=== PATIENT | male | born 1965 | race Caucasian/White ===

== ENCOUNTER 2020-02-02 16:22 | Observation (INO) | payer MEDICAID, SELFPAY ==
[~2020-02-02] VITALS: Ht 182.9 cm; Wt 87.5 kg
--- NOTE | 2020-02-02 16:22 | NUR ---
Patient BIBA CCT, transferred to bed 10. RT and RN are evaluating the patient at bedside.
--- NOTE | 2020-02-02 16:24 | NUR ---
Dr. Baker is evaluating the patient at bedside.
[2020-02-02 16:27] VITALS: BP 108/66
--- NOTE | 2020-02-02 16:45 | NUR ---
54[facility], FOR SAMANIEGO CATH INSERTION. SNF STAFF WAS UNABLE TO SUCCESSFULLY REPLACE SAMANIEGO AT FACILITY. PT VOIDED LARGE AMOUNT ON GURNEY, ABD SOFT/NT/ND. OSTOMY BAG ON LEFT LOWER ABD IN PLACE. G-TUBE IN PLACE, DRESSING C/D/I. DRAINAGE TUBE IN PLACE ON ABD CONNECTED TO A SAMANIEGO BAG. TRACH TO VENT AC: TV 500, RATE 12, FLOW 45, FIO2 28%, PEEP 5. FLACC 0. PT CONNECTED TO BEDSIDE MONITOR. AFEBRILE, VSS. HX TRACH TO VENT, SEIZURE, RESPIRATORY FAILURE, DM, HTN
--- NOTE | 2020-02-02 17:00 | NUR ---
16 Setswana simmons catheter placed at this time. Catheter placement confirmed by Dr Baker by bedside ultrasound.
--- NOTE | 2020-02-02 19:12 | NUR ---
Pt report given to ERIBERTO DAVIS. Transfer of care at this time.
--- NOTE | 2020-02-02 19:13 | NUR ---
REPORT RECIEVED FROM ERIBERTO CRAWFORD. TRANSFER OF CARE AT THIS TIME.
--- NOTE | 2020-02-02 19:20 | NUR ---
PT PLACED ON ICE CREAM MAKER/PULSE OX. VSS. SOCKS PLACED ON PT. BED LOCKED AND IN LOWEST POSITION. SIDE RAILS X2.
--- NOTE | 2020-02-02 19:30 | NUR ---
PER REPORT FROM ERIBERTO CRAWFORD- NO OUTPUT FROM SAMANIEGO CATHETER, PLACEMENT IN BLADDER CONFIRMED FROM PREVIOUS ULTRASOUND BY CRIS.
--- NOTE | 2020-02-02 21:30 | NUR ---
NO OUTPUT FROM BLADDER, SAMANIEGO EMPTY.
--- NOTE | 2020-02-02 21:30 | NUR ---
PT TRACH SUCTIONED DUE TO HIGH PEAK ALARM
[2020-02-02 21:50] VITALS: BP 128/88
--- NOTE | 2020-02-02 22:02 | NUR ---
PT TRACH SUCTIONED DUE TO HIGH PEAK ALARM
--- NOTE | 2020-02-02 22:13 | NUR ---
RT AT BEDSIDE
--- NOTE | 2020-02-02 23:30 | NUR ---
NO OUTPUT FROM BLADDER, SAMANIEGO EMPTY.
[2020-02-02 23:50] VITALS: BP 126/82
--- NOTE | 2020-02-03 | NUR ---
PT ASLEEP IN BED. VSS. BED LOCKED AND IN LOWEST POSITION. SIDE RAILS X2.
[2020-02-03] MEDS ORDERED: NACL 0.9% 1,000 ML IV ONE (00:55)
--- NOTE | 2020-02-03 01:10 | NUR ---
ATTEMPTED TO START IV. UNSUCCSSFUL. CHARGE NURSE MADE AWARE.
--- NOTE | 2020-02-03 01:20 | NUR ---
lab at bedside
[2020-02-03 01:35] LABS: BASOPHILS # (AUTO) 0.1 K/uL (0.00-0.22); BASOPHILS % (AUTO) 0.6 % (0.0-2.0); EOSINOPHILS # (AUTO) 0.5 K/uL (0-0.4); EOSINOPHILS % (AUTO) 4.5 % (0.0-4.0); HEMATOCRIT 34.8 % (36-52); HEMOGLOBIN 11.1 g/dL (12.0-18.0); LYMPHOCYTES # (AUTO) 1.7 K/uL (2.0-11.5); LYMPHOCYTES % (AUTO) 14.4 % (20.5-51.1); MEAN CORPUSCULAR HEMOGLOBIN 26 pg (27-31); MEAN CORPUSCULAR HGB CONC 32 g/dL (33-37); MEAN CORPUSCULAR VOLUME 80.4 fL (80-94); MONOCYTES # (AUTO) 0.9 K/uL (0.8-1.0); MONOCYTES % (AUTO) 7.9 % (1.7-9.3); NEUTROPHILS # (AUTO) 8.6 K/uL (1.8-7.7); PLATELET COUNT (AUTO) 251 K/uL (140-450); RED BLOOD CELL COUNT(AUTO) 4.33 MIL/uL (4.20-6.10); RED CELL DISTRIBUTION WIDTH 16.7 % (11.6-13.7); WHITE BLOOD COUNT (AUTO) 11.9 K/uL (4.8-10.8)
[2020-02-03 01:49] LABS: ALBUMIN 2.8 g/dL (3.4-5.0); ANION GAP 14.7 (8-16); CARBON DIOXIDE 26.3 mmol/L (21-32); CREATININE 0.8 mg/dL (0.6-1.3); TOTAL BILIRUBIN 0.3 mg/dL (0.0-1.0)
[2020-02-03 01:50] VITALS: BP 126/82
[2020-02-03 01:54] LABS: NEUTROPHILS % (AUTO) 72.6 % (42.2-75.2)
--- NOTE | 2020-02-03 02:06 | NUR ---
TANK SWAB COLLECTED AND SENT TO LAB
[2020-02-03] MEDS ORDERED: POTA10TE30 JT (02:16)
[2020-02-03] MEDS ORDERED: FAMO10TA93 JT (02:16)
[2020-02-03] MEDS ORDERED: [UNRECOGNIZED DRUG - CODE] GT (02:16)
[2020-02-03] MEDS ORDERED: LACT1CAP59 JT (02:16)
[2020-02-03] MEDS ORDERED: SENN8.6T37 JT (02:16)
[2020-02-03] MEDS ORDERED: LACT10SO4 JT (02:16)
[2020-02-03 03:00] VITALS: BP 126/82
--- NOTE | 2020-02-03 03:00 | NUR ---
200ML OUTPUT FROM SAMANIEGO
--- NOTE | 2020-02-03 03:15 | NUR ---
COLOSTOMY BAG CHANGED. DIAPER CHANGED. PT GIVEN BED BATH AND CHANGED INTO NEW GOWN.
--- NOTE | 2020-02-03 03:43 | NUR ---
Patient will be admitted to care of [facility]. Admited to [facility]. Will go to room 124B. Belongings list completed. Report to ERIBERTO ABDUL.
[2020-02-03 03:45] VITALS: BP 120/78
--- NOTE | 2020-02-03 03:45 | NUR ---
ADMITTED THE PT FROM ER VIA GURNEY. PT AWAKE, NON VERBAL, ON TRACH TO VENT SETTING ORDERED, SATING 97%. NO SIGN AND SYMPTOMS OF DISTRESS NOTED AT THIS TIME. VITAL SIGNS, STABLE, AFEBRILE. PATIENT HAS J TUBE DRAINING GREENISH FLUID. G TUBE IS CLAMPED, NO RESIDUAL NOTED.CLEANED THE J TUBE AND G TUBE SITE, NOTED REDNESS AND MINIMAL DRAINING.PLACED A NEW DRESSING. COLOSTOMY ALSO IN PLACED ON THE LLQ OF THE ABDOMEN. STOMA PINKISH IN COLOR AND NEW COLOSTOMY BAG WAS APPLIED IN ER. NO OUTPUT NOTED. SAMANIEGO CATHETER ALSO PLACE IN ER DRAINING DARK KYREE URINE. EVENING CARE PROVIDED. CHANGED THE PT GOWN AND POSITIONED FOR COMFORT. HOB ELEVATED. BED RAILS PADDED FOR SEIZURE PRECAUTION. NOTED PT HAS GENERALIZED SKIN DERMATITIS. Z GUARD APPLIED SIDE RAILS UP. BED IN LOW POSITION AND BED ALARM ON.CALL LIGHT WITHIN REACH.W ILL CONTINUE POC.
--- NOTE | 2020-02-03 06:27 | NUR ---
CHECKED PATIENT BLOOD SUGAR, 85. NO COVERAGE NEEDED AND GIVEN.
[2020-02-03] MEDS ORDERED: NACL 0.9% 1,000 ML IV SCH (06:35)
[2020-02-03] MEDS ORDERED: ONDANSETRON 4 MG/2 ML VIAL IVP PRN (06:35)
[2020-02-03] MEDS ORDERED: DOCUSATE SODIUM 100 MG GELCAP PO PRN (06:35)
[2020-02-03] MEDS ORDERED: ZOLPIDEM 5 MG TAB PO PRN (06:35)
[2020-02-03] MEDS ORDERED: ACETAMINOPHEN 325 MG TAB PO PRN (06:35)
[2020-02-03] MEDS ORDERED: HYDROcodone/APAP 5/325 MG 1 TAB TAB PO PRN (06:35)
[2020-02-03] MEDS ORDERED: MORPHINE SULFATE 2 MG/ML SYR IVP PRN (06:35)
[2020-02-03] MEDS ORDERED: LORazepam 2 MG/ML VIAL IM/IVP PRN (06:35)
[2020-02-03 06:39] LABS: BASOPHILS # (AUTO) 0.1 K/uL (0.00-0.22); BASOPHILS % (AUTO) 1.1 % (0.0-2.0); EOSINOPHILS # (AUTO) 0.8 K/uL (0-0.4); EOSINOPHILS % (AUTO) 6.4 % (0.0-4.0); HEMATOCRIT 34.1 % (36-52); HEMOGLOBIN 10.8 g/dL (12.0-18.0); LYMPHOCYTES % (AUTO) 17.2 % (20.5-51.1); MEAN CORPUSCULAR HEMOGLOBIN 25 pg (27-31); MEAN CORPUSCULAR HGB CONC 32 g/dL (33-37); MEAN CORPUSCULAR VOLUME 79.5 fL (80-94); MONOCYTES # (AUTO) 1.1 K/uL (0.8-1.0); MONOCYTES % (AUTO) 9.7 % (1.7-9.3); NEUTROPHILS # (AUTO) 7.7 K/uL (1.8-7.7); NEUTROPHILS % (AUTO) 65.6 % (42.2-75.2); PLATELET COUNT (AUTO) 275 K/uL (140-450); RED BLOOD CELL COUNT(AUTO) 4.29 MIL/uL (4.20-6.10); RED CELL DISTRIBUTION WIDTH 16.2 % (11.6-13.7); WHITE BLOOD COUNT (AUTO) 11.7 K/uL (4.8-10.8)
[2020-02-03 07:14] LABS: ALBUMIN 2.7 g/dL (3.4-5.0); ANION GAP 12.5 (8-16); CARBON DIOXIDE 29.4 mmol/L (21-32); CREATININE 0.8 mg/dL (0.6-1.3); MAGNESIUM 2.1 mg/dL (1.8-2.4); PHOSPHORUS 3.3 mg/dL (2.5-4.9); POTASSIUM 3.9 mmol/L (3.5-5.1); TOTAL BILIRUBIN 0.3 mg/dL (0.0-1.0)
--- NOTE | 2020-02-03 07:14 | NUR ---
RECEIVED REPORT FROM ACCOUNT MANAGER RELIEF. PT AWAKE, NO DISTRESS NOTED, RESPIRATIONS EVEN AND UNLABORED ON TRACH TO VENT FIO2 28% VT500 RR12 PEEP 5. DERMATITIS TO UNDERARMS AND GROIN PRESENT. BLANCHABLE REDNESS TO SACRAL AREA. GTUBE AND J TUBE IN PLACE, COLOSTOMY BAG IN PLACE. SAMANIEGO IN PLACE. IV SITE PATENT AND ASYMPTOMATIC INFUSING PER ORDER IN R AC 20G. SAFETY MEASURES IN PLACE, BED IN LOW POSITION, HOB 30 DEG, WILL CONTINUE TO MONITOR.
--- NOTE | 2020-02-03 07:14 | NUR ---
PATIENT STABLE. NO ACUTE EVENTS THROUGHOUT THE NIGHT. ENDORSED THE PT TO THE ONCOMING RN FOR CONTINUITY OF CARE. SIGNING OFF.
[2020-02-03 07:17] LABS: CHOL/HDL RATIO 5.4 (1-4.5)
[2020-02-03 07:40] LABS: FREE T4 (FREE THYROXINE) 1.08 ng/dL (0.76-1.46); THYROID STIMULATING HORMONE 0.68 uIU/mL (0.34-3.74)
--- NOTE | 2020-02-03 08:58 | NUR ---
DISCHARGE PLANNING: RECEIVED AN ORDER TO DC BACK TO [facility]. CONTACTED THE SAID FACILITY AT [phone] NO ANSWER. PLACED A CALL AGAIN, ABLE TO SPEAK TO . SHE STATED TO CALL VETO AT [phone]. CONTACTED THE PROVIDED NUMBER, NO ANSWER. LEFT MESSAGE. WILL FOLLOW UP. CONTACTED VETO OLIVER ARMATURE [facility] FOR [facility], [place] [place] AND [facility] AT [phone]. PER VETO, SHE WILL FIND OUT WHAT HAPPENED AND WILL CONTACT ME BACK. Addendum: 02/03/20 at 0909 by Libertad Willingham CM CLINICALS SENT TO [facility]. WILL FOLLOW UP Addendum: 02/03/20 at 1142 by Libertad Willingham CM LATE ENTRY: PER VETO SOMEBODY FROM [facility] WILL BE CONTACTING ME. RECEIVED A CALL FROM FAREED WEI, STATING THE [facility] IS HERE TO HEEL SPRAYER FIRST PATIENT. INFORMED HIM THAT I DO NOT HAVE THE ROOM NUMBER AND ACCEPTING DOC AT [facility]. VETO GIBBS MADE AWARE, SHE STATED SHE IS NOT SURE IF BERNIE IS THE ONE WHO SET UP TRANSPORT, HOWEVER SHE WILL CHECK AND WILL CALL ME BACK. SHE STATED JUAN ANTONIO WILL BE CALLING ME BACK. RECEIVED A CALL FROM ARMANI OF IVR, STATING THAT THEY ARE IN THE PROCESS OF ROOM CHANGES AND IF WE CAN WAIT. INFORMED HIM THAT AMBULANCE IS HERE AND THEY ARE NOT ABLE TO WAIT. I ALSO INFORMED HIM THAT THE PATIENT STAYED OVERNIGHT JUST BECAUSE WE COULD GET A TRANSPORT FOR HIM AND THE ONLY REASON THAT PATIENT WAS BROUGHT TO THE HOSPITAL IS FOR FC REPLACEMENT WHICH WAS DONE LAST NIGHT. HE STATED HE WILL CALL ME RIGHT BACK. PER MYA JC OF IV[facility] PATIENT CAN GO TO ROOM 120A UNDER DR. COLE ALVARADO. CHARGE NURSE AB MADE AWARE TO SEND THE PATIENT NOW.
--- NOTE | 2020-02-03 09:18 | NUR ---
PATIENT HAS BEEN SCREENED AND CATEGORIZED HIGH NUTRITION RISK. PATIENT WILL BE SEEN WITHIN 1-2 DAYS OF ADMISSION. 02/03/2020-02/04/[address]
--- NOTE | 2020-02-03 09:28 | NUR ---
ROCEPHIN ADMINISTERED PER ORDER. PT TOLERATED WELL, NO DISTRESS NOTED, FLACC 0. RESPIRATIONS EVEN AND UNLABORED. VAP ORAL CARE GIVEN. PT REPOSITIONED. WILL CONTINUE TO MONITOR.
[2020-02-03 10:11] VITALS: BP 119/76
--- NOTE | 2020-02-03 10:50 | NUR ---
PT DISCHARGED AT THIS TIME GOING BACK TO [facility]IA [facility]. PT IN STABLE CONDITION, NO DISTRESS NOTED, VITALS UPON DISCHARGE BP 119/76, P 98, RR 21, TEMP 97.8 AND O2 SAT 97%. IV SITE REMOVED WITH MIGUEL BLOOD LOSS AND LUMEN INTACT. SAMANIEGO LEFT IN PLACE. ID BANDS REMOVED. DISCHARGE TEACHING GIVEN, NO EVIDENCE OF LEARNING NOTICED. CALLED [facility] TIMES AT [phone] TO GIVE REPORT, NO RESPONSE. CALLED CONTACT ON FILE VETO OLIVER TWICE AT [phone], NO RESPONSE. PT ESCROTED OFF UNIT BY [facility] PERSONNEL IN [facility]. PT ADMITTED WITH NO BELONGINGS.
--- NOTE | 2020-02-03 11:32 | NUR ---
RECEIVED CALL FROM SB AT [facility] AND GAVE REPORT.
== END 2020-02-03 10:51 | disposition short-term general hospital (02) ==
LOC: MED 16:22 → MTU 02-03 01:59 → UNDOADMIN 02-03 01:59
PROVIDERS: ADMIT Family Medicine; ATTEND Family Medicine
DX: R62.50 Unspecified lack of expected normal physiological development in childhood (principal); Z20.828 Contact with and (suspected) exposure to other viral communicable diseases; G82.50 Quadriplegia, unspecified; N39.0 Urinary tract infection, site not specified; T83.091A Other mechanical complication of indwelling urethral catheter, initial encounter; G40.909 Epilepsy, unspecified, not intractable, without status epilepticus; I10 Essential (primary) hypertension; R13.10 Dysphagia, unspecified; E11.9 Type 2 diabetes mellitus without complications; D72.829 Elevated white blood cell count, unspecified; D53.9 Nutritional anemia, unspecified; E43 Unspecified severe protein-calorie malnutrition; J96.21 Acute and chronic respiratory failure with hypoxia; E78.1 Pure hyperglyceridemia; G93.1 Anoxic brain damage, not elsewhere classified; L89.90 Pressure ulcer of unspecified site, unspecified stage; Z99.11 Dependence on respirator [ventilator] status; Z93.3 Colostomy status; Z93.0 Tracheostomy status; Z93.1 Gastrostomy status; Z79.899 Other long term (current) drug therapy; Z88.1 Allergy status to other antibiotic agents; X58.XXXA Exposure to other specified factors, initial encounter; Y93.89 Activity, other specified; Y92.89 Other specified places as the place of occurrence of the external cause
CPT/HCPCS: 36415; 51702; 71045; 80053; 80061; 82150; 82948; 83036; 83690; 83735; 83880; 84100; 84439; 84443; 84484; 85025; 85610; 85730; 87081; 87426; 93005; 96361; 96365; 99284; G0378; J0696; J7030; J7060; Q0092; 94002; 94003

== ENCOUNTER 2020-02-29 14:34 | Emergency (ER) | payer MEDICAID, SELFPAY ==
[~2020-02-29] VITALS: Ht 177.8 cm; Wt 83.9 kg
[~2020-02-29 14:34] MED LIST: FAMO10TA93 JT; LACT10SO4 JT; LACT1CAP59 JT; METO-625 GT; POTA10TE30 JT; SENN8.6T37 JT
--- NOTE | 2020-02-29 14:34 | NUR ---
Patient TOMASA ALS from [facility], transferred to bed 10. RN and RT evaluating patient at bedside.
[2020-02-29 14:35] VITALS: BP 113/79
--- NOTE | 2020-02-29 14:37 | NUR ---
54 y/o male BIBA from [facility] for simmons catheter replacement. Per EMT F/C was dislodged today at facility. PMH: Respiratory failure, epilepsy, BPH, HF, DM, ESRD, anemia RX: Refer to patient's chart Allergies to zosyn
--- NOTE | 2020-02-29 14:44 | NUR ---
Dr. Scott is evaluating the patient at bedside.
[2020-02-29 14:50] VITALS: BP 120/78
--- NOTE | 2020-02-29 14:54 | NUR ---
Successful insertion of 16F simmons catheter. Pt tolerated procedure well.
[2020-02-29] MEDS ORDERED: METO25TA GT (14:58)
[2020-02-29] MEDS ORDERED: [UNRECOGNIZED DRUG - CODE] JT (14:58)
[2020-02-29] MEDS ORDERED: FAMO-90 JT (14:58)
[2020-02-29] MEDS ORDERED: HEPA500056 SQ (14:58)
[2020-02-29] MEDS ORDERED: DOCU-299 JT (14:58)
[2020-02-29] MEDS ORDERED: MAGN200T5 JT (14:58)
[2020-02-29] MEDS ORDERED: LACT1CAP59 JT (14:58)
[2020-02-29] MEDS ORDERED: LACT10SO1 JT (14:58)
[2020-02-29] MEDS ORDERED: NUTR887L JT (14:58)
[2020-02-29] MEDS ORDERED: MAGN400S60 JT (14:58)
--- NOTE | 2020-02-29 14:59 | NUR ---
Called to report to [facility] of transfer of patient care per [facility],
--- NOTE | 2020-02-29 15:00 | NUR ---
[facility] at bedside for return transport to SNF.
[2020-02-29 15:01] VITALS: BP 113/79
--- NOTE | 2020-02-29 15:02 | NUR ---
Patient discharged with v/s stable. Written and verbal after care instructions given and explained. Patient verbalized understanding. Ambulance Transport with to retirement. All questions addressed prior to discharge. Advised to follow up with PMD.
== END 2020-02-29 15:00 ==
LOC: MED 14:34
DX: T83.098A Other mechanical complication of other urinary catheter, initial encounter (principal); D64.9 Anemia, unspecified; E11.9 Type 2 diabetes mellitus without complications; I63.9 Cerebral infarction, unspecified; I10 Essential (primary) hypertension; Z88.0 Allergy status to penicillin; Z79.899 Other long term (current) drug therapy
CPT/HCPCS: 51702; 99284

== ENCOUNTER 2021-09-01 14:38 | Inpatient (IN) | payer MEDICAID ==
[~2021-09-01] VITALS: Ht 172.7 cm; Wt 76.2 kg
--- NOTE | 2021-09-01 00:15 | NUR ---
PATIENT IS ASLEEP. NO FACIAL GRIMACING. SAMANIEGO CATHETER IS PATENT WITH URINE IS DRAINING DOWN. NO HEMATURIA.
[~2021-09-01 14:38] MED LIST changes: +DOCU-299 JT; +FAMO-90 JT; -FAMO10TA93 JT; +HEPA500056 SQ; +LACT-103 JT; -LACT10SO4 JT; +MAGN200T5 JT; +MAGN400S60 JT; +METO25TA GT; +NUTR887L JT; -POTA10TE30 JT; -SENN8.6T37 JT; +[UNRECOGNIZED DRUG - CODE] JT
[2021-09-01 14:48] VITALS: BP 185/95
--- NOTE | 2021-09-01 14:58 | NUR ---
55 Y/O MALE BIBA FROM [facility] C/O GT MALFUNCTION, STATED THAT GT WAS CHANGED IN 08/25/2021,,EXCESSIVE LEAKING AND MASD PREVENT. 2ND GT ON 08/30/21 D/T LEAKING TO A BIGGER SIZE, NOW FR24. PER DR ALVARADO, SENT OUT FOR FURTHER EVAL. NOTED LEAKING GT, SAMANIEGO IN PLACE, TRACH TO VENT, IV 22G IN LEFT HAND. HR 105 PMH;EPILEPSY, BPH, TIA, RESPIRATORY FAILURE, TRACH, CHF, AFIB, HTN, ALLERGY: ZOSYN
[2021-09-01] MEDS ORDERED: NACL 0.9% 1,000 ML IV SCH (15:10)
[2021-09-01] MEDS ORDERED: levoFLOXacin 500 MG TAB PO ONE (15:10)
--- NOTE | 2021-09-01 15:11 | NUR ---
RAD AT BEDSIDE
[2021-09-01 15:23] LABS: BASOPHILS # (AUTO) 0.1 K/uL (0.00-0.22); BASOPHILS % (AUTO) 0.9 % (0.0-2.0); EOSINOPHILS # (AUTO) 0.5 K/uL (0-0.4); EOSINOPHILS % (AUTO) 3.6 % (0.0-4.0); HEMATOCRIT 39.6 % (36-52); HEMOGLOBIN 12.7 g/dL (12.0-18.0); LYMPHOCYTES # (AUTO) 2.4 K/uL (2.0-11.5); LYMPHOCYTES % (AUTO) 18.7 % (20.5-51.1); MEAN CORPUSCULAR HEMOGLOBIN 26 pg (27-31); MEAN CORPUSCULAR HGB CONC 32 g/dL (33-37); MEAN CORPUSCULAR VOLUME 81.3 fL (80-94); MONOCYTES # (AUTO) 0.8 K/uL (0.8-1.0); MONOCYTES % (AUTO) 6.3 % (1.7-9.3); NEUTROPHILS # (AUTO) 9.1 K/uL (1.8-7.7); NEUTROPHILS % (AUTO) 70.5 % (42.2-75.2); PLATELET COUNT (AUTO) 246 K/uL (140-450); RED BLOOD CELL COUNT(AUTO) 4.87 MIL/uL (4.20-6.10); RED CELL DISTRIBUTION WIDTH 17.8 % (11.6-13.7); WHITE BLOOD COUNT (AUTO) 12.9 K/uL (4.8-10.8)
[2021-09-01 15:34] LABS: ALBUMIN 2.8 g/dL (3.4-5.0); ANION GAP 10.3 (8-16); CARBON DIOXIDE 30.1 mmol/L (21-32); CREATININE 0.6 mg/dL (0.6-1.3); POTASSIUM 3.4 mmol/L (3.5-5.1); TOTAL BILIRUBIN 0.4 mg/dL (0.0-1.0)
[2021-09-01] MEDS ORDERED: LEVOFLOXACIN 500 MG/D5W PREMIX 100 ML IV ONE (16:15)
[2021-09-01 16:57] LABS: BILIRUBIN,URINE NEGATIVE (NEGATIVE); BLOOD, URINE 2+ (NEGATIVE); LEUKOCYTE ESTERASE ,URINE 3+ (NEGATIVE); NITRITE, URINE POSITIVE (NEGATIVE); PH,URINE >=9.0 (5.0-9.0); UGLUCOSE NEGATIVE (NEGATIVE)
[2021-09-01] MEDS ORDERED: ONDA-188 SL (16:59)
[2021-09-01] MEDS ORDERED: BISA-218 RC (16:59)
[2021-09-01] MEDS ORDERED: DIGO0.122 PO (16:59)
[2021-09-01] MEDS ORDERED: PHEN100C3 GT (16:59)
[2021-09-01] MEDS ORDERED: MIDO10TA PO (16:59)
[2021-09-01] MEDS ORDERED: OMEP-303 PO (16:59)
[2021-09-01] MEDS ORDERED: ACET-8386 PO (16:59)
[2021-09-01] MEDS ORDERED: [UNRECOGNIZED DRUG - CODE] GT (16:59)
[2021-09-01] MEDS ORDERED: METO-485 GT (16:59)
[2021-09-01 17:10] LABS: APPEARANCE,URINE CLOUDY (CLEAR)
[2021-09-01 17:11] LABS: COLOR,URINE AMBER (YELLOW); RBC,URINE 11-20 (MOD) /HPF (0-5)
[2021-09-01] MEDS ORDERED: ATRMDI IH (18:36)
--- NOTE | 2021-09-01 19:24 | NUR ---
Pt report given to LISA PALOMO. Transfer of care at this time.
--- NOTE | 2021-09-01 19:30 | NUR ---
RECIEVED REPORT FROM ASHWINI
--- NOTE | 2021-09-01 20:16 | NUR ---
Patient will be admitted to care of DR FREIRE. Admited to TELE[facility]. Will go to room 108B. Belongings list completed. Report to SILVINO.
--- NOTE | 2021-09-01 20:25 | NUR ---
PATIENT ARRIVED AND ADMITTED TO [facility] UNIT. PATIENT IS WITH TRACHEOSTOMY/VENT, GT TUBE AND SAMANIEGO CATHETER - ALL INTACT AND PATENT. REDNESS ON ABDOMEN AREA PRESENT WITH SKIN INTACT. REDNESS ALSO PRESENT ON LOWER BUTTOCK. IV SALINE LOCK ON LEFT WRIST AND RIGHT HAND INTACT AND PATENT. PATIENT IS NON VERBAL.
--- NOTE | 2021-09-01 20:47 | NUR ---
The patient's care was reviewed and supervised by Bekah Light RN.
[2021-09-02] VITALS: BP 116/69
--- NOTE | 2021-09-02 00:15 | NUR ---
PATIENT IS ASLEEP. NO FACIAL GRIMACING. SAMANIEGO CATHETER IS PATENT WITH URINE IS DRAINING DOWN. NO HEMATURIA.
[2021-09-02 04:00] VITALS: BP 111/71
--- NOTE | 2021-09-02 06:18 | NUR ---
PATIENT HAS BEEN SCREENED AND CATEGORIZED HIGH NUTRITION RISK. PATIENT WILL BE SEEN WITHIN 1-2 DAYS OF ADMISSION. RECEIVED CONSULT FOR MALNUTRITION AND REFERRAL FOR TUBE FEEDING ARTHUR MCF[address]
[2021-09-02 06:59] LABS: BASOPHILS % (AUTO) 0.6 % (0.0-2.0); EOSINOPHILS # (AUTO) 0.5 K/uL (0-0.4); EOSINOPHILS % (AUTO) 6.7 % (0.0-4.0); LYMPHOCYTES # (AUTO) 1.3 K/uL (2.0-11.5); LYMPHOCYTES % (AUTO) 16.2 % (20.5-51.1); MEAN CORPUSCULAR HEMOGLOBIN 26 pg (27-31); MEAN CORPUSCULAR HGB CONC 32 g/dL (33-37); MEAN CORPUSCULAR VOLUME 80.6 fL (80-94); MONOCYTES # (AUTO) 0.7 K/uL (0.8-1.0); MONOCYTES % (AUTO) 9.4 % (1.7-9.3); NEUTROPHILS # (AUTO) 5.3 K/uL (1.8-7.7); NEUTROPHILS % (AUTO) 67.1 % (42.2-75.2); PLATELET COUNT (AUTO) 234 K/uL (140-450); RED BLOOD CELL COUNT(AUTO) 4.22 MIL/uL (4.20-6.10); RED CELL DISTRIBUTION WIDTH 17.8 % (11.6-13.7); WHITE BLOOD COUNT (AUTO) 7.9 K/uL (4.8-10.8)
[2021-09-02 07:04] LABS: ALBUMIN 2.4 g/dL (3.4-5.0); ANION GAP 9.4 (8-16); CARBON DIOXIDE 28.8 mmol/L (21-32); CREATININE 0.6 mg/dL (0.6-1.3); POTASSIUM 3.2 mmol/L (3.5-5.1); TOTAL BILIRUBIN 0.4 mg/dL (0.0-1.0)
--- NOTE | 2021-09-02 07:25 | NUR ---
PATIENT IS ASLEEP AND ON STABLE CONDITION. SAMANIEGO CATHETER PATENT, DRAINED URINE OUT 180CC. ENDORSED TO DAY SHIFT NURSE FOR CONTINUITY OF PATIENT CARE.
[2021-09-02 07:56] VITALS: BP 115/76
--- NOTE | 2021-09-02 09:00 | NUR ---
PT IS ASLEEP, VSS, NAD NOTED. PT WITH TRACH INTACT, SAMANIEGO CATH IN PLACE, G TUBE WITH DRIED DRAINAGE.
--- NOTE | 2021-09-02 09:18 | NUR ---
MD AWARE OF POTASSIUM, AWAITING ORDER.
[2021-09-02] MEDS ORDERED: KCL 20 MEQ/WATER INJ PREMIX 200 ML IV SCH (09:20)
[2021-09-02] MEDS ORDERED: NON-FORMULARY ITEM (Lactulose 15 ML) JT PRN (10:15)
[2021-09-02] MEDS ORDERED: ONDANSETRON 4 MG ODT SL SCH (10:15)
[2021-09-02] MEDS ORDERED: MAGNESIUM HYDROXIDE 2400 MG/30 ML UDC JT PRN (10:15)
[2021-09-02] MEDS ORDERED: MAG SULF 2000 MG/WATER PREMIX 50 ML IV PRN (10:20)
[2021-09-02] MEDS ORDERED: ZOLPIDEM 5 MG TAB GT PRN (10:20)
[2021-09-02] MEDS ORDERED: HYDROcodone/APAP 5/325 MG 1 TAB TAB PO PRN (10:20)
[2021-09-02] MEDS ORDERED: ONDANSETRON 4 MG/2 ML VIAL IM/IVP PRN (10:20)
--- NOTE | 2021-09-02 10:36 | NUR ---
09/02/21 RD INITIAL ASSESSMENT COMPLETED PLEASE REFER TO NUTRITION ASSESSMENT UNDER CARE ACTIVITY FOR ESTIMATED NUTRITIONAL NEEDS. 1. WHEN/IF MEDICALLY APPROPRIATE TO START TF, RECOMMEND JEVITY 1.2 WITH A GOAL RATE OF 60 ML/HR -FWF: 150 ML Q4H OR PER MD -START AT 10 ML AND INCREASE BY 10 ML/HR Q4H TOLERATED -WILL PROVIDE 1728 KCAL AND 80 GM PROTEIN, MEETING 82% ESTIMATED KCAL AND 100% ESTIMATED PROTEIN NEEDS; ADEQUATE 2. RECOMMEND TRICIA BID PER RD PROTOCOL 3. RD TO FOLLOW-UP 2-3 DAYS, HIGH RISK ARTHUR MCFADDEN RD
[2021-09-02] MEDS: NACL 0.9% 1,000 ML IV SCH (10:43)
[2021-09-02] MEDS ORDERED: DOCUSATE 100 MG/10 ML UDC GT PRN (10:45)
[2021-09-02] MEDS ORDERED: ACETAMINOPHEN 650 MG/20.3 ML UDC PO PRN (10:45)
[2021-09-02 11:05] LABS: PROTHROMBIN TIME 10.8 secs (10.8-13.4)
[2021-09-02 11:18] LABS: CHOL/HDL RATIO 4.6 (1-4.5); THYROID STIMULATING HORMONE 0.53 uIU/mL (0.34-3.74)
[2021-09-02 11:31] LABS: BARBITURATE, URINE POSITIVE ng/ml (NEG <=200); BENZODIAZEPINE, URINE NEGATIVE ng/mL (NEG <=200); CANNABINOID, URINE NEGATIVE ng/mL (NEG <=50); COCAINE, URINE NEGATIVE ng/mL (NEG <=300); OPIATE, URINE POSITIVE ng/mL (NEG <=2000); PHENCYCLIDINE SCREEN,URINE NEGATIVE ng/mL (NEG <=25)
[2021-09-02] MEDS: METOCLOPRAMIDE 10 MG/10 ML SYRP UDC GT SCH ×2 (11:33→17:54)
[2021-09-02 11:56] VITALS: BP 110/72
[2021-09-02] MEDS: MIDODRINE 5 MG TAB GT SCH ×2 (12:32→21:00)
[2021-09-02] MEDS ORDERED: MIDODRINE HCL 10 MG PO SCH (13:00)
--- NOTE | 2021-09-02 14:25 | NUR ---
DC PLANNIN YRS OLD MALE PATIENT WAS ADMITTED FROM [facility] WITH A DX OF G-TUBE MALFUNCTION, STOMA INFECTION UTI. PATIENT HAS A HX OF CHRONIC RESP FAILURE, CONSTIPATION, A-FIB, HTN, GERD, SEIZURE AND DYSPHAGIA. CXR SHOWED LOW LUNG VOLUMES WITH BILATERAL EDEMA/INFILTRATES. ABDOMINAL X-RAY NON SPECIFIC BOWEL GAS PATTERN. RAPID COVID TEST NEGATIVE. ADMINISTERED IVF, IV ABX LEVAQUIN. CONSULTED WITH PULMO, ID AND GI. DC PLAN TO RETURN TO [facility] WHEN STABLE. CM TO FOLLOW Addendum: 09/05/21 at 1128 by Sherry Cardoza CM DC PLANNING: ORDER [facility]. ACCEPTED TO ROOM 111A, DR ALVARADO TO FOLLOW. [facility] WILL INTERNATIONAL FIRST OFFICER AT 1300, CCT LEVEL. ELIDA SPOKE WITH HIS NURSE TERRANCE, THE PATIENTS PEG IS LEAKING, DR LOPEZ WILL BE CALLED TO POSSIBLY REPLACE IT. [facility] TRANSPORT CHANGED TO WILL CALL ([phone])TERRANCE AWARE. ELIDA WILL FOLLOW. Addendum: 09/09/21 at 1303 by Sherry Cardoza CM DC PLANNING: PATIENT WITH DC ORDER TO [facility] S/P PEG REPLACEMENT. PATIENT ASSIGNED ROOM 115A, DR ALVARADO TO FOLLOW. NUMBER TO CALL REPORT IS [phone]. [facility] SCHEDULED TO PICK THE PATIENT UP AT 1500, ABOVE ENDORSED TO NURSING. CM WILL FOLLOW.
[2021-09-02 16:00] VITALS: BP 126/78
[2021-09-02] MEDS: PHENYTOIN 100 MG/4 ML UDC GT SCH (16:51)
[2021-09-02] MEDS ORDERED: PHENYTOIN JT SCH (17:00)
[2021-09-02] MEDS: LEVOFLOXACIN 500 MG/D5W PREMIX 100 ML IV SCH (17:54)
--- NOTE | 2021-09-02 18:31 | NUR ---
PT IS ASLEEP, VSS, NAD NOTED. PT WITH TRACH INTACT, SAMANIEGO CATH IN PLACE, G TUBE WITH DRIED DRAINAGE. PT RECEIVING NS@60CC. POTASSIUM REPLACED. SAFETY MEASURES IN PLACE.
--- NOTE | 2021-09-02 19:12 | NUR ---
ENDORSED CARE TO ERIBERTO FULLER.
[2021-09-02 20:00] VITALS: BP 117/74
[2021-09-02] MEDS ORDERED: FAMOTIDINE 20 MG TAB JT SCH (21:00)
[2021-09-02] MEDS: METOPROLOL 50 MG TAB GT SCH (21:00)
[2021-09-02] MEDS: PANTOPRAZOLE 40 MG INJ VIAL IVP SCH (21:00)
[2021-09-02] MEDS: DOCUSATE 100 MG/10 ML UDC GT SCH (21:00)
[2021-09-03] VITALS: BP 151/86
[2021-09-03] MEDS: CLINDAMYCIN 600 MG in DEXTROSE 5% 50 ML IV SCH ×4 (00:42→21:46)
--- NOTE | 2021-09-03 00:45 | NUR ---
[facility] FOR CONTINUITY OF CARE.
[2021-09-03] MEDS: METOCLOPRAMIDE 10 MG/2 ML INJ VIAL IVP SCH ×4 (00:47→17:29)
[2021-09-03] MEDS ORDERED: CLINDAMYCIN 600 MG/4 ML VIAL ONE (01:19)
[2021-09-03] MEDS: NACL 0.9% 1,000 ML IV SCH ×2 (03:00→22:35)
[2021-09-03 04:00] VITALS: BP 145/81
[2021-09-03] MEDS: MIDODRINE 5 MG TAB GT SCH ×3 (05:39→21:54)
[2021-09-03 07:30] LABS: BASOPHILS # (AUTO) 0.1 K/uL (0.00-0.22); EOSINOPHILS # (AUTO) 0.3 K/uL (0-0.4); HEMATOCRIT 33.4 % (36-52); HEMOGLOBIN 10.7 g/dL (12.0-18.0); LYMPHOCYTES # (AUTO) 1.3 K/uL (2.0-11.5); LYMPHOCYTES % (AUTO) 18.2 % (20.5-51.1); MEAN CORPUSCULAR HEMOGLOBIN 26 pg (27-31); MEAN CORPUSCULAR HGB CONC 32 g/dL (33-37); MEAN CORPUSCULAR VOLUME 81.1 fL (80-94); MONOCYTES # (AUTO) 0.6 K/uL (0.8-1.0); MONOCYTES % (AUTO) 9.3 % (1.7-9.3); NEUTROPHILS # (AUTO) 4.7 K/uL (1.8-7.7); NEUTROPHILS % (AUTO) 67.5 % (42.2-75.2); PLATELET COUNT (AUTO) 222 K/uL (140-450); RED BLOOD CELL COUNT(AUTO) 4.12 MIL/uL (4.20-6.10)
--- NOTE | 2021-09-03 07:30 | NUR ---
RECEIVED REPORT FROM DAY SHIFT. PT IN BED WITH HOB ELEVATED. AOX0 UNABLE TO MAKE NEEDS KNOWN, APHASIC, OPENS EYES SPONTANEOUSLY. TRACH TO VENT, NO RESPIRATORY DISTRESS, FLACC 0. WITH LW 22G AND RH 22G INTACT AND RUNNING IVF ORDERED. PLAN TO DC GTUBE TODAY
[2021-09-03 07:34] LABS: MAGNESIUM 2.1 mg/dL (1.8-2.4); PHOSPHORUS 2.9 mg/dL (2.5-4.9)
[2021-09-03 07:46] LABS: ANION GAP 11.8 (8-16); CARBON DIOXIDE 25.4 mmol/L (21-32); CREATININE 0.6 mg/dL (0.6-1.3); POTASSIUM 3.2 mmol/L (3.5-5.1)
[2021-09-03 08:00] VITALS: BP 150/75
[2021-09-03] MEDS ORDERED: [UNRECOGNIZED DRUG - OTHER] GT SCH (09:00)
[2021-09-03] MEDS ORDERED: IRON GT SCH (09:00)
[2021-09-03] MEDS ORDERED: MULTIVITAMIN GT SCH (09:00)
[2021-09-03] MEDS ORDERED: LACTULOSE 20 GM/30 ML UDC GT PRN (09:00)
[2021-09-03] MEDS: bisacodyL 10 MG SUPP RC SCH (09:00)
[2021-09-03] MEDS ORDERED: PHENYTOIN 100 MG CAPER PO SCH (09:00)
--- NOTE | 2021-09-03 09:00 | NUR ---
DUE MEDS GIVEN VIA NGT
[2021-09-03] MEDS: PANTOPRAZOLE 40 MG INJ VIAL IVP SCH ×2 (09:48→21:53)
[2021-09-03] MEDS: DOCUSATE 100 MG/10 ML UDC GT SCH ×2 (09:48→21:53)
[2021-09-03] MEDS: METOPROLOL 50 MG TAB GT SCH ×2 (09:49→21:54)
[2021-09-03] MEDS: MULTIVITAMIN 1 TAB GT SCH (09:49)
[2021-09-03] MEDS: DIGOXIN 0.125 MG/2.5 ML UDC GT SCH (09:50)
[2021-09-03] MEDS: PHENYTOIN 100 MG/4 ML UDC GT SCH ×2 (09:51→17:29)
--- NOTE | 2021-09-03 10:30 | NUR ---
GTUBE REMOVED ORDERED, COLOSTOMY BAG PLACED FOR DRAINAGE
--- NOTE | 2021-09-03 11:32 | NUR ---
WOUND CARE EVALUATION NOTE: SKIN ASSESSMENT DONE WITH THIS 55 Y/O PT ADMITTED FROM SNF TO [facility] WITH INITIAL DX G-TUBE MALFUNCTION, STOMA INFECTION. PAST MEDICAL HX INCLUDES DYSPHAGIA, CHRONIC RESPIRATORY FAILURE, A. FIB, GERD, HYPERTENSION AND SEIZURE DISORDER. ALL ABOVE INFORMATION OBTAINED FROM ADMISSION H&P. PT IS AWAKE. SKIN IS WARM AND DRY, BLE NO HAIR GROWTH, NO EDEMA WITH SEVERE CONTRACTURES, DORSAL PEDAL PULSES PRESENT AND NORMAL. CAPILLARY REFILLED < 2 SEC. X 10 TOES. LLQ ABDOMEN COLOSTOMY, F/C PATENT WITH SMALL AMOUNT KYREE COLOR URINE OUT PUT OBSERVED. PLAN OF CARE DISCUSSED WITH PRIMARY RN MAYA, PER MAYA PENDING GI AND PLAN IS TO REMOVE GT. INTEGUMENTARY: -ORAL MEMBRANE PINK INTACT, LIPS, CHEEKS SKIN DRY, NO OPEN WOUNDS -TRACH SITE CITLALY STOMA SKIN DRY AND CLEAN. SKIN INTACT. -GT SITE CITLALY STOMA WITH SKIN RED, MOIST WITH SUPERFICIAL EROSIONS, NO ODOR AFTER CLEANSE, CITLALY WOUND SKIN RASHES, RED AND INTACT -ABDOMEN DISTENDED LLQ COLOSTOMY STOMA BEEFY RED AND FUNCTIONING, CITLALY STOMA SKIN CLEAN, INTACT -MOISTURE ASSOCIATED DERMATITIS (MAD) TO: B/L GROINS EXTENDED TO SCROTAL, SKIN REDNESS -SACROCOCCYX OLD HEALED SCAR TISSUE BLANCHABLE REDNESS SKIN MOIST INTACT. RECOMMENDATIONS: -APPLY HYDRAGUARD TO R/L GROINS, SCROTAL BID AND PRN IF SOILING -APPLY FORM DRESSING TO SACROCOCCYX EVERY 3 DAYS AND PRN IF SOILING PREVENTION -POSITIONING: TURN AND REPOSITION PATIENT Q 2H OR SOONER USE PILLOWS TO KEEP BONY PROMINENCES FROM DIRECT CONTACT WITH SURFACES USE REPOSITIONING WEDGES TO PROVIDE 30-DEGREE ANGLE FOR SIDE LYING POSITIONS OFFLOADING OR FOAM DRESSING TO ALL TUBING TO PREVENT MEDICAL DEVICES RELATED PRESSURE INJURY -RE-EVALUATING AND MANAGING INCONTINENCE MONITOR SKIN CONDITION DURING POSITION CHANGE DO NOT MASSAGE REDNESS, BONY PROMINENCES FREQUENT CITLALY-CARE AND PROVIDE BARRIER CREAMS PRN IF SOILING MOISTURE CONTROL BY OFFER BED MUNOZ/URINAL /ABSORBENT PAD TO WICK AND HOLD MOISTURE. MAY OBTAIN ORDER FOR FLEX SEAL, RECTAL BAG OR SAMANIEGO CATHETER PER PHYSICIAN ORDER UNLESS OTHERWISE CONTRAINDICATED KEEP SKIN DRY AND PROTECT FROM FRICTION -MANAGE FRICTION/SHEAR/MOBILITY KEEP HOB AT THE LOWEST LEVEL OF ELEVATION NO MORE THAN 30 DEGREES UNLESS OTHERWISE CONTRAINDICATED USE LIFT SHEET OR TRANSFER DEVICE TO MOVE PATIENT AND PREVENT LATERAL SHEER. CONSIDER TRAPEZE IF APPROPRIATE PROTECT HEELS, ELBOWS BONY PROMENANCES WITH SKIN BERRIES OR FOAM DRESSING IF EXPOSED TO FRICTION OFFLOAD BILATERAL HEELS BY PLACING PILLOWS UNDER CALVES AT ALL TIMES, UNLESS OTHERWISE CONTRAINDICATED -PRESSURE REDISTRIBUTION SURFACE THERAPY ROBERT ISOFLEX MATTRESS -NUTRITION: PLEASE FOLLOW RD RECOMMENDATIONS AND OFFER NUTRITION SUPPLEMENTS IF ORDERED. PLEASE CONTACT WOUND CARE NURSE FOR ANY QUESTION AND CHANGE OF WOUND CONDITION.
[2021-09-03 12:00] VITALS: BP 138/88
[2021-09-03] MEDS: FOAM DRESSING TP SCH (12:25)
[2021-09-03] MEDS: HYDRAGUARD CREAM TP SCH (12:25)
--- NOTE | 2021-09-03 14:30 | NUR ---
SEEN AND EXAMINED BY DR LOPEZ
--- NOTE | 2021-09-03 15:06 | NUR ---
CITLALY CARE DONE. TURNED AND REPOSITIONED
[2021-09-03 16:00] VITALS: BP 144/82
[2021-09-03] MEDS: LEVOFLOXACIN 500 MG/D5W PREMIX 100 ML IV SCH (17:29)
--- NOTE | 2021-09-03 18:30 | NUR ---
PT RESTING IN BED NO RESPIRATORY DISTRESS, NO S/S OF PAIN
--- NOTE | 2021-09-03 21:50 | NUR ---
REVIEWING SERUM K+ 3.2 - INFORMING NURSE EDITH ABOUT IT - PER EDITH THE AM NURSE ENDORSED TO HER K REPLACEMENT GIVEN .
[2021-09-03 22:45] VITALS: BP 122/72
[2021-09-04] MEDS: METOCLOPRAMIDE 10 MG/2 ML INJ VIAL IVP SCH ×4 (03:33→17:32)
[2021-09-04] MEDS: HYDRAGUARD CREAM TP SCH ×2 (03:54→13:11)
[2021-09-04] MEDS: MIDODRINE 5 MG TAB GT SCH ×4 (05:27→21:00)
[2021-09-04] MEDS: CLINDAMYCIN 600 MG in DEXTROSE 5% 50 ML IV SCH ×2 (05:28→12:51)
[2021-09-04 07:03] LABS: BASOPHILS # (AUTO) 0.1 K/uL (0.00-0.22); BASOPHILS % (AUTO) 1.1 % (0.0-2.0); EOSINOPHILS # (AUTO) 0.4 K/uL (0-0.4); EOSINOPHILS % (AUTO) 5.5 % (0.0-4.0); HEMATOCRIT 31.7 % (36-52); HEMOGLOBIN 10.2 g/dL (12.0-18.0); LYMPHOCYTES # (AUTO) 1.5 K/uL (2.0-11.5); LYMPHOCYTES % (AUTO) 18.9 % (20.5-51.1); MEAN CORPUSCULAR HEMOGLOBIN 26 pg (27-31); MEAN CORPUSCULAR HGB CONC 32 g/dL (33-37); MEAN CORPUSCULAR VOLUME 81.7 fL (80-94); MONOCYTES # (AUTO) 0.7 K/uL (0.8-1.0); MONOCYTES % (AUTO) 9.3 % (1.7-9.3); NEUTROPHILS # (AUTO) 5.2 K/uL (1.8-7.7); NEUTROPHILS % (AUTO) 65.2 % (42.2-75.2); PLATELET COUNT (AUTO) 222 K/uL (140-450); RED BLOOD CELL COUNT(AUTO) 3.88 MIL/uL (4.20-6.10); RED CELL DISTRIBUTION WIDTH 17.8 % (11.6-13.7)
[2021-09-04 07:11] LABS: MAGNESIUM 1.8 mg/dL (1.8-2.4); PHOSPHORUS 2.6 mg/dL (2.5-4.9)
[2021-09-04 07:18] LABS: ANION GAP 9.4 (8-16); CARBON DIOXIDE 25.1 mmol/L (21-32); CREATININE 0.6 mg/dL (0.6-1.3); POTASSIUM 3.5 mmol/L (3.5-5.1)
--- NOTE | 2021-09-04 07:20 | NUR ---
RECEIVED REPORT FROM DAY SHIFT. PT IN BED WITH HOB ELEVATED. AOX0 UNABLE TO MAKE NEEDS KNOWN, APHASIC, OPENS EYES SPONTANEOUSLY. TRACH TO VENT, ACVC, FIO2 28%, VT 450, R 14, PEEP 5. NO RESPIRATORY DISTRESS, FLACC 0. GT STOMA WITH COLOSTOMY BAG. BOWEL SOUNDS ACTIVE. F/C TO GRAVITY. NONAMBULATORY, GENERALIZED WEAKNESS. WITH LW 22G AND RH 22G INTACT AND RUNNING IVF ORDERED. ON CONTACT PRECAUTIONS FOR MRSA OF NARES. SAFETY PRECAUTIONS MET. INITIAL ASSESSMENT COMPLETE, WILL CONTINUE TO CLOSELY MONITOR.
--- NOTE | 2021-09-04 07:39 | NUR ---
End of shift report given to incoming nurse. pt asleep in bed, comfort and safety measures in place, with bed in low position, locked, bed alarm on, 2 side rails on. Pt asleep, facial expression relaxed and calm, simmons draining by gravity, dark den urine. Skin with redness at former G-Tube stoma, draining watery stomach contents. Alco, colostomy bag clean and dry, no bm recorded from tonight. Pt stable and comfortable.
[2021-09-04 08:00] VITALS: BP 159/82
[2021-09-04] MEDS: DOCUSATE 100 MG/10 ML UDC GT SCH ×2 (08:40→22:47)
[2021-09-04] MEDS: PANTOPRAZOLE 40 MG INJ VIAL IVP SCH ×2 (08:40→22:54)
[2021-09-04] MEDS: MULTIVITAMIN 1 TAB GT SCH (08:40)
[2021-09-04] MEDS: bisacodyL 10 MG SUPP RC SCH (08:42)
[2021-09-04] MEDS: METOPROLOL 50 MG TAB GT SCH ×2 (08:42→22:40)
[2021-09-04] MEDS: NYSTATIN CRE 100 MU/GM 15 GM TUBE TP SCH (08:43)
[2021-09-04] MEDS: DIGOXIN 0.125 MG/2.5 ML UDC GT SCH (08:44)
--- NOTE | 2021-09-04 09:02 | NUR ---
SEEN AND EXAMINED BY DR THOMAS.
[2021-09-04] MEDS: PHENYTOIN 100 MG/4 ML UDC GT SCH ×2 (09:51→17:32)
--- NOTE | 2021-09-04 11:00 | NUR ---
PT RESTING COMFORTABLY, RESPIRATIONS EVEN AND UNLABORED. WILL CONTINUE TO CLOSELY MONITOR.
[2021-09-04 12:00] VITALS: BP 147/75
[2021-09-04] MEDS: NACL 0.9% 1,000 ML IV SCH (12:48)
--- NOTE | 2021-09-04 13:00 | NUR ---
SEEN AND EXAMINED BY DR LOPEZ. INSERTED GTUBE.
--- NOTE | 2021-09-04 13:13 | NUR ---
09/04/21 RD FOLLOW UP COMPLETED PLEASE REFER TO NUTRITION ASSESSMENT UNDER CARE ACTIVITY FOR ESTIMATED NUTRITIONAL NEEDS. 1. WHEN/IF MEDICALLY APPROPRIATE TO START TF, RECOMMEND JEVITY 1.2 WITH A GOAL RATE OF 60 ML/HR -FWF: 150 ML Q4H OR PER MD -START AT 10 ML AND INCREASE BY 10 ML/HR Q4H TOLERATED -WILL PROVIDE 1728 KCAL AND 80 GM PROTEIN, MEETING 82% ESTIMATED KCAL AND 100% ESTIMATED PROTEIN NEEDS; ADEQUATE 2. RECOMMEND TRICIA BID PER RD PROTOCOL 3. RD TO FOLLOW-UP 2-3 DAYS, HIGH RISK ARTHUR MCFADDEN RD
--- NOTE | 2021-09-04 15:00 | NUR ---
PT RESTING COMFORTABLY, RESPIRATIONS EVEN AND UNLABORED. WILL CONTINUE TO CLOSELY MONITOR.
[2021-09-04 16:00] VITALS: BP 150/86
--- NOTE | 2021-09-04 17:00 | NUR ---
PT RESTING COMFORTABLY, RESPIRATIONS EVEN AND UNLABORED. WILL CONTINUE TO CLOSELY MONITOR.
--- NOTE | 2021-09-04 19:00 | NUR ---
PT RESTING COMFORTABLY, RESPIRATIONS EVEN AND UNLABORED. WILL CONTINUE TO CLOSELY MONITOR.
--- NOTE | 2021-09-04 19:27 | NUR ---
ENDORSED BEDSIDE REPORT TO NIGHT RN FOR CONTINUITY OF CARE.
--- NOTE | 2021-09-04 19:30 | NUR ---
RECEIVED REPORT FROM RN DAYSHIFT NURSE AT BEDSIDE FOR CONTINUITY OF CARE, PT LYING IN BED HOB AT 45% HE IS A TRACH TO VENT FI02 28% RR 14 AND PEEP OF 5. PT HAS A SAMANIEGO CATHETER AND A COLONOSCOPY INTACT . HE IS AOX1 HAS CONTRACTIONS ON BILATERAL LIMBS WITH HEEL PROTECTORS. PT HAS DRESSING DRY AND INTACT ON RIGHT KNEE. HE HAS A NG TUBE LEFT NARE. PT IS NPO AT THIS TIME. PT HAS IV SITE ON THE RIGHT HAND WHICH NS RUNNING AT 80MLS/ ORDERED. ALL ASPIRATION AND FALLS PRECAUTIONS IN PLACE.
[2021-09-04 20:00] VITALS: BP 141/76
--- NOTE | 2021-09-04 20:30 | NUR ---
PT IN BED HE WAS REPOSITIONED V/S FOLLOWS: T 97 P 57 R 14 B/P 141/76 02 99% WITH ALL TRACH TO VENT SETTINGS, ALL ORDERED PRECAUTIONS IN PLACE.
--- NOTE | 2021-09-04 21:30 | NUR ---
PT WAS GIVEN ORDERED COLACE AND LOPRESSOR VIA NG TUBE, MIDODRINE WAS HELD DUE TO HIGH B/P. MERREM ALSO HUNG AND RUNNING AT 100MLS/HR ORDERED. FLUIDS RUNNING ORDERED ALL ORDERED PRECAUTIONS IN PLACE.
[2021-09-04] MEDS: MEROPENEM 1,000 MG in NACL 0.9% 50 ML IV SCH (22:54)
[2021-09-05] MEDS: METOCLOPRAMIDE 10 MG/2 ML INJ VIAL IVP SCH ×5 (00:04→23:19)
--- NOTE | 2021-09-05 00:30 | NUR ---
PT TURNED AND REPOSITIONED IN BED. PT WAS SUCTION AND ORAL CARE PROVIDED. HYPOGUARD PROVIDED ON CITLALY AREA. ALL ORDERED PRECAUTIONS IN PLACE.
[2021-09-05] MEDS: HYDRAGUARD CREAM TP SCH ×2 (01:00→12:56)
[2021-09-05] MEDS: MEROPENEM 1,000 MG in NACL 0.9% 50 ML IV SCH ×3 (05:00→20:28)
[2021-09-05] MEDS: NACL 0.9% 1,000 ML IV SCH ×2 (05:00→22:23)
[2021-09-05] MEDS: MIDODRINE 5 MG TAB GT SCH ×3 (05:00→20:24)
--- NOTE | 2021-09-05 05:30 | NUR ---
PT IN BED HE WAS TURNED ,CHANGED AND REPOSITIONED IN BED HE WAS GIVEN ORDERED MEDICATION MIDODRINE HELD DUE TO HIGH BLOOD PRESSURE. PT GIVEN ORDERED REGLAN IVP MIDODRINE HELD DUE TO INCREASED B/P. ALL ORDERED PRECAUTIONS IN PLACE.
[2021-09-05 07:04] LABS: ANION GAP 9.4 (8-16); CARBON DIOXIDE 25.8 mmol/L (21-32); CREATININE 0.5 mg/dL (0.6-1.3); POTASSIUM 3.2 mmol/L (3.5-5.1)
[2021-09-05 07:14] LABS: BASOPHILS # (AUTO) 0.1 K/uL (0.00-0.22); BASOPHILS % (AUTO) 0.9 % (0.0-2.0); EOSINOPHILS # (AUTO) 0.4 K/uL (0-0.4); EOSINOPHILS % (AUTO) 5.8 % (0.0-4.0); HEMATOCRIT 31.4 % (36-52); HEMOGLOBIN 10.2 g/dL (12.0-18.0); LYMPHOCYTES # (AUTO) 0.9 K/uL (2.0-11.5); LYMPHOCYTES % (AUTO) 11.4 % (20.5-51.1); MEAN CORPUSCULAR HEMOGLOBIN 26 pg (27-31); MEAN CORPUSCULAR HGB CONC 33 g/dL (33-37); MEAN CORPUSCULAR VOLUME 80.6 fL (80-94); MONOCYTES # (AUTO) 0.6 K/uL (0.8-1.0); MONOCYTES % (AUTO) 8.4 % (1.7-9.3); NEUTROPHILS # (AUTO) 5.6 K/uL (1.8-7.7); NEUTROPHILS % (AUTO) 73.5 % (42.2-75.2); PLATELET COUNT (AUTO) 206 K/uL (140-450); RED CELL DISTRIBUTION WIDTH 17.5 % (11.6-13.7); WHITE BLOOD COUNT (AUTO) 7.6 K/uL (4.8-10.8)
[2021-09-05 07:21] LABS: MAGNESIUM 1.8 mg/dL (1.8-2.4); PHOSPHORUS 2.9 mg/dL (2.5-4.9)
--- NOTE | 2021-09-05 07:30 | NUR ---
RECEIVED BEDSIDE REPORT FROM APPLICATION CONSULTANT NURSE, PT RESTING, NO DISTRESS NOTED, APHASIC. ETT TO VENT, ACVC FIO2 28% TV 450 R 14 PEEP5. NO SOB NOTED, SATURATING @ 98%. IV TO RIGHT HAND 22G PATENT INTACT, INFUSING WELL. NGT TO LEFT NARES PATENT INTACT, IN PLACE, NO RESIDUAL NOTED. GT IN PLACE LEAKAGE NOTED. SAMANIEGO CATH IN PLACE DRAINING TO GRAVITY. INITIAL ASSESSMENT DONE, ALL SAFETY PRECAUTION MET, CALL LIGHT WITHIN REACH, WILL CONTINUE TO MONITOR.
[2021-09-05 08:00] VITALS: BP 152/85
[2021-09-05] MEDS: DOCUSATE 100 MG/10 ML UDC GT SCH ×2 (09:42→20:27)
[2021-09-05] MEDS: DIGOXIN 0.125 MG/2.5 ML UDC GT SCH (09:42)
[2021-09-05] MEDS: PANTOPRAZOLE 40 MG INJ VIAL IVP SCH ×2 (09:42→20:29)
[2021-09-05] MEDS: bisacodyL 10 MG SUPP RC SCH (09:42)
[2021-09-05] MEDS: METOPROLOL 50 MG TAB GT SCH ×2 (09:43→20:29)
[2021-09-05] MEDS: MULTIVITAMIN 1 TAB GT SCH (09:43)
--- NOTE | 2021-09-05 09:43 | NUR ---
DUE MEDICATIONS ADMINISTERED, PT TOLERATED WELL, WILL CONTINUE TO MONITOR
[2021-09-05] MEDS: NYSTATIN CRE 100 MU/GM 15 GM TUBE TP SCH (09:44)
[2021-09-05] MEDS ORDERED: IV Meropenem IV (10:25)
[2021-09-05] MEDS: PHENYTOIN 100 MG/4 ML UDC GT SCH ×2 (10:30→17:34)
--- NOTE | 2021-09-05 10:56 | NUR ---
PRIMARY RN REPORTED THAT GT STOMA LEAKAGE CONTINUE AFTER THE NEW PLACEMENT OF GT. GT CITLALY-STOMA SKIN YOKER EROSIONS NOTICE AND STOMACH CONTENT/FLUIDS CONTINUOUSLY SEEPING OUT. ABDOMEN SKIN REDNESS, RASHES WITH MULTIPLE EROSION.. RUQ PARTIAL THICKNESS SKIN LOSS 1X1X0.2CM. POC DISCUSSED. GT STOMA AREA CLEAN WITH SOAP AND WATER, PAT DRY, APPLY SKIN PREP WIPE, STOMA POWDER APPLY TO EROSIONS AND COVER WITH COLOSTOMY WAFER THEN APPLY DRY DRESSING CHANGE PRN IF SOILING. POC DISCUSSED WITH PRIMARY RN AND CONTINUE TO FOLLOW UP WITH GI DOCTOR.
[2021-09-05 12:00] VITALS: BP 122/73
[2021-09-05] MEDS: GAUZE TP SCH (12:56)
--- NOTE | 2021-09-05 13:00 | NUR ---
GT TAKEN OFF PER DR LOPEZ'S ORDER, PT TOLERATED WELL, COLOSTOMY BAG PLACE FOR THE DRAINAGE.
--- NOTE | 2021-09-05 14:20 | NUR ---
PER DR LOPEZ TO CONNECT PT NGT TO LOW INTERMITTENT SUCTION. WILL CONTINUE WITH ORDERS.
--- NOTE | 2021-09-05 15:11 | NUR ---
NOTIFIED DR GILMAN REGARDING DR. LOPEZ ORDERS, DR STATED UNDERSTANDING, WILL CONTINUE TO MONITOR.
[2021-09-05 16:00] VITALS: BP 123/65
--- NOTE | 2021-09-05 18:45 | NUR ---
PT ON ACVC 450, RR14, +5, 28%. ALARMS ARE SET AND AUDIBLE, WHEELS LOCKED, PLUGGED INTO RED OUTLET, AMBU BAG AT BEDSIDE.
--- NOTE | 2021-09-05 19:20 | NUR ---
ENDORSED PT TO TV PRODUCTION ASSISTANT NURSE FOR CONTINUOUS OF CARE.
--- NOTE | 2021-09-05 19:21 | NUR ---
RECEIVED BEDSIDE REPORT FROM DAY RN, PT RESTING W/ EYE CLOSED. NO DISTRESS NOTED, APHASIC. RESPIRATIONS ARE EQULA AND UNLABORED ON TRACH TO VENT, ACVC FIO2 28% TV 450 R 14 PEEP5. RR 23 SAT 93%. IVF INFUSING PER ORDERS IV ON L THUMB 24G WRAPPED. NGT TO LEFT NARES PATENT INTACT ON LOW INTERMITTENT SUCTION, NOTED APPROX 100C OUT DARK BROWN DRAINAGE. GT IN PLACE LEAKAGE NOTED WITH COLOSTOMY BAG IN PLACE. SAMANIEGO CATH IN PLACE DRAINING TO GRAVITY. INITIAL ASSESSMENT DONE, ALL SAFETY PRECAUTION MET, CALL LIGHT WITHIN REACH, WILL CONTINUE TO MONITOR.
[2021-09-05 20:00] VITALS: BP 139/72
--- NOTE | 2021-09-05 20:28 | NUR ---
VSS. HELD PROAMATINE BP 139/72 98 BPM. NGT PLACEMENT VERIFIED AND FLUSH W/ 30CC OF AIR. PT WITH 5 CC OF GASTRIC RESIDUAL ELZA MEDICATIONS GIVEN PER ORDERS. LOW INTERMITTENT SUCTION STOPPED D/T PO MEDS. ORAL CARE PROVIDED PT UNABLE FOLLOW DIRECTION. DEEP SUCTION MOD THICK CREAMY SECRETIONS. HOB ELEVATED. ALL SAFETY MEASURES ARE IN PLACE.
[2021-09-05] MEDS: POTASSIUM CHLORIDE 20% 40 MEQ/15 ML UDC PO PRN (20:30)
--- NOTE | 2021-09-05 22:15 | NUR ---
PATIENT OBSERVED RESTING IN BED W/ EYE CLOSED. RESPIRATIONS UNLABORED ON TRACH TO VENT. SAFETY MEASURES ARE IN PLACE.
[2021-09-06] MEDS: HYDRAGUARD CREAM TP SCH ×2 (00:19→13:00)
--- NOTE | 2021-09-06 00:38 | NUR ---
VSS. ORAL CARE PROVIDED. PATIENT WAS REPOSITION FOR COMFORT. ALL SAFETY MEASURES ARE IN PLACE.
--- NOTE | 2021-09-06 02:16 | NUR ---
DEEP SUCTION SMALL AMOUNT CREAMY SECRETIONS. HOB ELEVATED. ALL SAFETY MEASURES ARE IN PLACE.
[2021-09-06 04:00] VITALS: BP 146/74
--- NOTE | 2021-09-06 04:00 | NUR ---
VITAL SIGNS ARE WITHIN NORMAL LIMITS. ALL SAFETY MEASURES ARE IN PLACE. WILL CONTINUE TO MONITOR.
[2021-09-06] MEDS: MIDODRINE 5 MG TAB GT SCH ×3 (05:00→21:00)
[2021-09-06] MEDS: MEROPENEM 1,000 MG in NACL 0.9% 50 ML IV SCH ×3 (05:28→21:00)
[2021-09-06] MEDS: METOCLOPRAMIDE 10 MG/2 ML INJ VIAL IVP SCH ×3 (05:28→17:03)
[2021-09-06 07:06] LABS: BASOPHILS % (AUTO) 0.7 % (0.0-2.0); EOSINOPHILS # (AUTO) 0.4 K/uL (0-0.4); EOSINOPHILS % (AUTO) 5.6 % (0.0-4.0); HEMATOCRIT 32.6 % (36-52); HEMOGLOBIN 10.6 g/dL (12.0-18.0); LYMPHOCYTES # (AUTO) 0.6 K/uL (2.0-11.5); LYMPHOCYTES % (AUTO) 9.2 % (20.5-51.1); MEAN CORPUSCULAR HEMOGLOBIN 27 pg (27-31); MEAN CORPUSCULAR HGB CONC 33 g/dL (33-37); MEAN CORPUSCULAR VOLUME 81.2 fL (80-94); MONOCYTES # (AUTO) 0.5 K/uL (0.8-1.0); MONOCYTES % (AUTO) 7.4 % (1.7-9.3); NEUTROPHILS # (AUTO) 5.3 K/uL (1.8-7.7); NEUTROPHILS % (AUTO) 77.1 % (42.2-75.2); PLATELET COUNT (AUTO) 215 K/uL (140-450); RED BLOOD CELL COUNT(AUTO) 4.01 MIL/uL (4.20-6.10); RED CELL DISTRIBUTION WIDTH 18.2 % (11.6-13.7); WHITE BLOOD COUNT (AUTO) 6.8 K/uL (4.8-10.8)
[2021-09-06 07:11] LABS: ANION GAP 13.1 (8-16); CARBON DIOXIDE 24.2 mmol/L (21-32); CREATININE 0.6 mg/dL (0.6-1.3); POTASSIUM 3.3 mmol/L (3.5-5.1)
[2021-09-06 07:15] LABS: MAGNESIUM 1.7 mg/dL (1.8-2.4); PHOSPHORUS 2.7 mg/dL (2.5-4.9)
--- NOTE | 2021-09-06 07:27 | NUR ---
GAVE BEDSIDE REPORT TO DAY RN. PT ENDORSED IN STABLE CONDITION.
[2021-09-06 08:00] VITALS: BP 157/79
--- NOTE | 2021-09-06 08:33 | NUR ---
RECEIVED ENDORSEMENT FROM PM SHIFT NURSE THAT PATIENT IS REST IN BED, DWAIN BUCKNER 24G PATENT W/ NS INFUSING AT 60ML/HR. WILL CONTINUE TO MONITOR
[2021-09-06] MEDS: DOCUSATE 100 MG/10 ML UDC GT SCH ×2 (09:18→21:59)
[2021-09-06] MEDS: MULTIVITAMIN 1 TAB GT SCH (09:20)
[2021-09-06] MEDS: METOPROLOL 50 MG TAB GT SCH ×2 (09:20→21:59)
[2021-09-06] MEDS: PANTOPRAZOLE 40 MG INJ VIAL IVP SCH ×2 (09:20→21:00)
[2021-09-06] MEDS: PHENYTOIN 100 MG/4 ML UDC GT SCH ×2 (09:21→17:02)
[2021-09-06] MEDS: DIGOXIN 0.125 MG/2.5 ML UDC GT SCH (09:22)
[2021-09-06] MEDS: bisacodyL 10 MG SUPP RC SCH (09:23)
[2021-09-06] MEDS: NYSTATIN CRE 100 MU/GM 15 GM TUBE TP SCH (09:26)
[2021-09-06] MEDS: FOAM DRESSING TP SCH (09:27)
[2021-09-06] MEDS: POTASSIUM CHLORIDE 20% 40 MEQ/15 ML UDC PO PRN (09:41)
--- NOTE | 2021-09-06 11:52 | NUR ---
09/06/21 RD FOLLOW UP COMPLETED PLEASE REFER TO NUTRITION PROGRESS NOTE UNDER CARE ACTIVITY FOR ESTIMATED NUTRITION NEEDS. RD RECOMMENDATIONS: 1. IF/WHEN MEDICALLY APPROPRIATE, CONSIDER STARTING NUTRITION SUPPORT VIA NGTUBE/G TUBE OR TPN PT HAS BEEN NPOX 5 DAYS 2. WHEN/IF MEDICALLY APPROPRIATE TO START TF, RECOMMEND JEVITY 1.2 WITH A GOAL RATE OF 60 ML/HR -FWF: 150 ML Q4H OR PER MD -START AT 10 ML AND INCREASE BY 10 ML/HR Q4H TOLERATED -WILL PROVIDE 1728 KCAL AND 80 GM PROTEIN, MEETING 82% ESTIMATED KCAL AND 100% ESTIMATED PROTEIN NEEDS; ADEQUATE 3. RECOMMEND TRICIA BID PER RD PROTOCOL 4. RD TO FOLLOW-UP 2-3 DAYS, HIGH RISK ERIN AMES, RD
[2021-09-06 12:48] VITALS: BP 157/79
[2021-09-06] MEDS: GAUZE TP SCH (13:00)
--- NOTE | 2021-09-06 14:17 | NUR ---
DR. VASQUEZ IS HERE TO SEE PATIENT AND NURSE REPORT THAT PATIENT'S POTASSIUM IS 3.3 (09/06/2021) AND NURSE CORRECT W/ 40MEQ PO K VIA NG-TUBE WHICH IS UNDER INTERMITTED SUCTION. DR. VASQUEZ AGREE TO CHANGE SOME PATIENT'S PO MED TO MAYBE IV OR VIA OTHER ADMINISTRATION ROUTINE.
[2021-09-06] MEDS: NACL 0.9% 1,000 ML IV SCH (14:24)
[2021-09-06 16:00] VITALS: BP 93/55
--- NOTE | 2021-09-06 19:34 | NUR ---
RECEIVED BEDSITE REPORT FROM DAY SHIFT NURSE.
--- NOTE | 2021-09-06 19:35 | NUR ---
ENDORSE PT TO PM SHIFT NURSE THAT PATIENT IS REST IN BED, PIV L. THUMB 24G PATENT W/ NS INFUSING AT 60ML/HR, NG-TUBE CONNECT TO WALL INTERMITTENT SUCTION W/ 70ML OUT DURING SHIFT.
--- NOTE | 2021-09-06 20:08 | NUR ---
PT CURRENTLY ON ACVC 450, 14, +5, 28%. VENT PLUGGED INTO RED OUTLET, WHEELS LOCKED, ALARMS ARE SET AND AUDIBLE, AMBU BAG AT BEDSIDE. PT COMFORTABLE
[2021-09-07] VITALS: BP 120/68
--- NOTE | 2021-09-07 00:15 | NUR ---
PT IS ON STABLE CONDITION AND ASLEEP.
[2021-09-07] MEDS: METOCLOPRAMIDE 10 MG/2 ML INJ VIAL IVP SCH ×4 (00:48→18:37)
[2021-09-07] MEDS: HYDRAGUARD CREAM TP SCH ×2 (00:52→13:29)
[2021-09-07] MEDS: MIDODRINE 5 MG TAB GT SCH ×3 (05:49→21:48)
[2021-09-07] MEDS: MEROPENEM 1,000 MG in NACL 0.9% 50 ML IV SCH ×3 (05:50→21:49)
[2021-09-07 06:33] LABS: BASOPHILS # (AUTO) 0.1 K/uL (0.00-0.22); EOSINOPHILS # (AUTO) 0.3 K/uL (0-0.4); EOSINOPHILS % (AUTO) 5.7 % (0.0-4.0); HEMATOCRIT 32.4 % (36-52); HEMOGLOBIN 10.4 g/dL (12.0-18.0); LYMPHOCYTES # (AUTO) 0.9 K/uL (2.0-11.5); LYMPHOCYTES % (AUTO) 17.8 % (20.5-51.1); MEAN CORPUSCULAR HEMOGLOBIN 26 pg (27-31); MEAN CORPUSCULAR HGB CONC 32 g/dL (33-37); MEAN CORPUSCULAR VOLUME 81.2 fL (80-94); MONOCYTES # (AUTO) 0.6 K/uL (0.8-1.0); MONOCYTES % (AUTO) 10.9 % (1.7-9.3); NEUTROPHILS # (AUTO) 3.4 K/uL (1.8-7.7); NEUTROPHILS % (AUTO) 64.6 % (42.2-75.2); PLATELET COUNT (AUTO) 204 K/uL (140-450); RED BLOOD CELL COUNT(AUTO) 3.99 MIL/uL (4.20-6.10); RED CELL DISTRIBUTION WIDTH 18.1 % (11.6-13.7); WHITE BLOOD COUNT (AUTO) 5.3 K/uL (4.8-10.8)
[2021-09-07] MEDS: NACL 0.9% 1,000 ML IV SCH ×2 (07:00→23:40)
[2021-09-07 07:03] LABS: ANION GAP 9.8 (8-16); CARBON DIOXIDE 27.6 mmol/L (21-32); CREATININE 0.5 mg/dL (0.6-1.3); POTASSIUM 3.4 mmol/L (3.5-5.1)
--- NOTE | 2021-09-07 07:20 | NUR ---
PT IS ON STABLE CONDITION, IVF NORMAL SALINE INFUSING WELL, NO SIGN/SYMPTOM OF INFECTION ON IV SITE. PRESCRIBED MEDICATIONS ADMINISTERED ORDERED. ENDORSED TO DAY SHIFT NURSE FOR CONTINUITY OF PT CARE.
[2021-09-07 08:00] VITALS: BP 100/57
--- NOTE | 2021-09-07 08:00 | NUR ---
RECEIVED ENDORSEMENT FROM PM SHIFT NURSE WHILE PATIENT RESTING IN BED, DWAIN BUCKNER 24G PATENT W/ NS INFUSING AT 60ML/HR. LAB RESULT K=3.4, WILL CONTINUE TO MONITOR
[2021-09-07] MEDS: PHENYTOIN 100 MG/4 ML UDC GT SCH ×2 (09:00→09:36)
[2021-09-07 09:04] LABS: PHOSPHORUS 2.4 mg/dL (2.5-4.9)
[2021-09-07] MEDS: DOCUSATE 100 MG/10 ML UDC GT SCH ×2 (09:36→21:48)
[2021-09-07] MEDS: DIGOXIN 0.125 MG/2.5 ML UDC GT SCH (09:36)
[2021-09-07] MEDS: MULTIVITAMIN 1 TAB GT SCH (09:37)
[2021-09-07] MEDS: METOPROLOL 50 MG TAB GT SCH ×2 (09:37→21:48)
[2021-09-07] MEDS: PANTOPRAZOLE 40 MG INJ VIAL IVP SCH ×2 (09:37→21:49)
[2021-09-07] MEDS: bisacodyL 10 MG SUPP RC SCH (09:38)
[2021-09-07] MEDS: POTASSIUM CHLORIDE 20% 40 MEQ/15 ML UDC PO PRN (09:39)
[2021-09-07] MEDS: NYSTATIN CRE 100 MU/GM 15 GM TUBE TP SCH (09:39)
[2021-09-07] MEDS ORDERED: KCL 20 MEQ/WATER INJ PREMIX 200 ML IV PRN (11:45)
--- NOTE | 2021-09-07 11:55 | NUR ---
RECEIVE TELEPHONE ORDER TO HAVE PATIENT'S PO DILANTIN TO IV, SO IS CHANGE POTASSIUM PO TO IV
[2021-09-07] MEDS: GAUZE TP SCH (13:28)
[2021-09-07] MEDS: PHENYTOIN IV SCH (14:59)
[2021-09-07] MEDS: NACL 0.9% IV SCH (14:59)
--- NOTE | 2021-09-07 15:29 | NUR ---
DISCARD 950ML DRAINAGE FLUID FROM NG SUCTION COLLECTING CUP
[2021-09-07 16:00] VITALS: BP 93/55
--- NOTE | 2021-09-07 19:01 | NUR ---
NURSES ONLY ABLE TO PLACED 24G PERIPHERAL IV CATHETER IN PATIENT'S THUMBS WHICH COULD NOT LAST TOO LONG. SINCE PATIENT IS NPO, AND NG IS FOR SUCTION, THEREFORE IV IS THE MAJOR SOURCE TO PATIENT'S INTAKE. DR. VASQUEZ INFORMED AND RECEIVE PERMISSION TO HAVE PICC PLACEMENT. BUT NURSE UNABLE TO GET HOLD OF PATIENT'S NEXT KIN. WILL ENDORSE.
--- NOTE | 2021-09-07 19:30 | NUR ---
PT CURRENTLY ON ACVC 450, RR 14, +5 AND 28% FIO2. WHEELS ARE LOCKED, ALARMS ARE AUDIBLE AND AMBU BAG AT BEDSIDE. SUCTIONED MODERATE AMOUNT OF YELLOW SECRETIONS. CHANGED OUT DRESSING.
--- NOTE | 2021-09-07 19:48 | NUR ---
ENDORSE PATIENT TO PM SHIFT NURSE WITH STABLE CONDITION, PIV 24G AT L&R THUMB, NS INFUSING AT 60ML/HR.
--- NOTE | 2021-09-07 19:49 | NUR ---
RECEIVED BEDSIDE REPORT FROM DAY SHIFT NURSE FOR CONTINUITY OF PATIENT CARE. PT IS ON STABLE CONDITION.
[2021-09-07] MEDS ORDERED: PHENYTOIN 100 MG/2 ML VIAL IVP SCH (21:00)
[2021-09-08] MEDS: HYDRAGUARD CREAM TP SCH ×2 (01:00→13:00)
[2021-09-08 04:00] VITALS: BP 149/81
[2021-09-08] MEDS: MIDODRINE 5 MG TAB GT SCH ×3 (04:34→21:23)
[2021-09-08] MEDS: MEROPENEM 1,000 MG in NACL 0.9% 50 ML IV SCH ×3 (04:36→21:21)
[2021-09-08] MEDS: METOCLOPRAMIDE 10 MG/2 ML INJ VIAL IVP SCH ×4 (05:23→18:31)
--- NOTE | 2021-09-08 07:10 | NUR ---
REVIEWED DR. JENNIFER OLMOS CARE PLAN 09/07/2021 "BRONCHODILATORS NEEDED"; ORDERED 09/08/2021 0712
[2021-09-08] MEDS ORDERED: ALBUTEROL SULFATE/IPRATROPIU 3 ML SOL IH PRN (07:15)
--- NOTE | 2021-09-08 07:38 | NUR ---
PATIENT IS STABLE WITH NO CHANGE OF CONDITION. IV SALINE LOCK ON BOTH HANDS INTACT AND PATENT. IV FLUID OF NORMAL SALINE IS RUNNING AT 60 ML/HR. NO SIGN/SYMPTOM OF INFECTION ON IV SITE. ENDORSED TO DAY SHIFT NURSE FOR CONTINUITY OF PT CARE.
--- NOTE | 2021-09-08 07:52 | NUR ---
RECEIVED ON A [employer] R860 VENTILATOR PLUGGED INTO RED OUTLET TOLERATING WELL WITHOUT ADVERSE REACTIONS NOTED TO A SHILEY XLT #8 AIRWAY SECURED WITH A TIMOTHY TRACH TIE CUFF PRESSURE CHECKED NOTED AMBU BAG AT BEDSIDE LOC AWAKE CHEST RISE SHALLOW DEEP TRACHEAL SUCTION FOR SMALL THIN YELLOW SECRETIONS AIRWAY PATENT HHN PRN THERAPY GIVEN AT THIS TIME
[2021-09-08 08:00] VITALS: BP 141/66
--- NOTE | 2021-09-08 08:25 | NUR ---
RECEIVE ENDORSEMENT FROM PM SHIFT NURSE THAT PATIENT REST IN BED, PIV 24G AT L.&R.THUMB PATENT. NS@60ML/HR INFUSING, NG SUCTION EMPTY 700ML IN PM SHIFT. WILL CONTINUE TO MONITOR
[2021-09-08] MEDS: PHENYTOIN IV SCH ×2 (09:00→21:24)
[2021-09-08] MEDS: NACL 0.9% IV SCH ×2 (09:00→21:24)
[2021-09-08] MEDS: bisacodyL 10 MG SUPP RC SCH (09:00)
[2021-09-08] MEDS: NYSTATIN CRE 100 MU/GM 15 GM TUBE TP SCH (09:00)
[2021-09-08] MEDS: DOCUSATE 100 MG/10 ML UDC GT SCH ×2 (10:31→21:23)
[2021-09-08] MEDS: DIGOXIN 0.125 MG/2.5 ML UDC GT SCH (10:32)
[2021-09-08] MEDS: MULTIVITAMIN 1 TAB GT SCH (10:32)
[2021-09-08] MEDS: METOPROLOL 50 MG TAB GT SCH ×2 (10:34→21:23)
[2021-09-08] MEDS: PANTOPRAZOLE 40 MG INJ VIAL IVP SCH ×2 (10:35→21:22)
[2021-09-08 12:15] VITALS: BP 123/68
--- NOTE | 2021-09-08 12:15 | NUR ---
RESTING COMFORTABLY NO EVIDENCE FOR PULMONARY DISTRESS NOTED GOOD CHEST RISE AND AERATION THROUGHOUT BILATERAL LUNG STARK AIRWAY PATENT PATIENT ENDORSED TO Viviana FRAUSTO RCP FOR REMAINDER OF DAY SHIFT
[2021-09-08] MEDS: GAUZE TP SCH (13:00)
--- NOTE | 2021-09-08 14:40 | NUR ---
DR. LOPEZ IS HERE AND PLACE NEW G-TUBE AND ORDERED KUB TO VERIFY TUBE PLACE AND ORDER TO STOP NG SUCTION AND D/C NG, START USING G-TUBE AFTER TUBE PLACEMENT VERIFIED. WILL CONTINUE TO MONITOR PATIENT.
[2021-09-08 16:00] VITALS: BP 136/76
[2021-09-08] MEDS: NACL 0.9% 1,000 ML IV SCH (16:21)
--- NOTE | 2021-09-08 16:51 | NUR ---
RECEIVED KUB RESULT THAT "Gastrostomy tube in satisfactory intraluminal position. Nonspecific bowel gas pattern without evidence of obstruction." NURSE D/C NG-TUBE. WILL CONTINUE TO MONITOR.
--- NOTE | 2021-09-08 19:15 | NUR ---
ENDORSE PT TO PM SHIFT NURSE THAT PATIENT REST IN BED, PIV 24G AT L.&R.THUMB PATENT. NS@60ML/HR INFUSING, NG SUCTION EMPTY 00ML IN AM SHIFT BEFORE D/C. NEW G-TUB IS READY TO USE.
--- NOTE | 2021-09-08 19:30 | NUR ---
RECEIVED BEDSIDE REPORT FROM DAY SHIFT RN FOR CONTINUITY OF CARE. APHASIC. PT IS TRACH TO VENT. VENT SETTING: FIO2 28, VT 450, RATE 14, PEEP 5. PT HAS G-TUBE PATENT. PT HAS LEFT AND RIGHT THUMB 24 GAUGE. RIGHT THUMB RUNNING NS 60 ML/HR. PT HAS COLOSTOMY BAG. FC IN PLACE DRAINING YELLOW KYREE URINE. BED AT THE LOWEST POSITION. ALL SAFETY MEASURES TAKEN. WILL CONTINUE TO MONITOR THE PT.
--- NOTE | 2021-09-08 21:30 | NUR ---
ALL DUE MEDS GIVEN. NO ADVERSE REACTION NOTED. WILL CONTINUE TO MONITOR THE PT.
[2021-09-09] MEDS: METOCLOPRAMIDE 10 MG/2 ML INJ VIAL IVP SCH ×3 (00:25→12:12)
--- NOTE | 2021-09-09 00:35 | NUR ---
PT IS SLEEPING IN BED COMFORTABLY. PT IS NOT IN ANY ACUTE DISTRESS. IVF RUNNING PER MD ORDER. PT O2 SAT IS 96%. BED AT THE LOWEST POSITION. HEAD OF BED RAISED. WILL CONTINUE TO MONITOR THE PT.
[2021-09-09] MEDS: HYDRAGUARD CREAM TP SCH ×2 (01:14→13:00)
--- NOTE | 2021-09-09 02:18 | NUR ---
PT IS SLEEPING IN BED COMFORTABLY. PT IS NOT IN ANY ACUTE DISTRESS. IVF RUNNING PER MD ORDER. PT O2 SAT IS 97%. BED AT THE LOWEST POSITION. HEAD OF BED RAISED. WILL CONTINUE TO MONITOR THE PT.
[2021-09-09 04:00] VITALS: BP 117/66
[2021-09-09] MEDS: MEROPENEM 1,000 MG in NACL 0.9% 50 ML IV SCH ×2 (05:05→12:51)
[2021-09-09] MEDS: MIDODRINE 5 MG TAB GT SCH ×2 (05:06→12:23)
--- NOTE | 2021-09-09 05:10 | NUR ---
ALL DUE MEDS GIVEN. NO ADVERSE REACTION NOTED. WILL CONTINUE TO MONITOR THE PT.
--- NOTE | 2021-09-09 07:15 | NUR ---
RECEIVED REPORT FROM MANAGER RAIL NURSE FOR CONTINUITY OF CARE. PT AWAKE IN BED, NON VERBAL. BREATHING SYMMETRICAL, ON TRACH TO VENT WITH SETTINGS FIO2 28, VT450, PEEP 5, RATE 14. WITH IV LINE ON BOTH THUMBS 24G, NS RUNNING AT 60CC/HR ON RIGHT THUMB. FLACC O. CONTRACTED ON BOTH UPPER AND LOWER EXTREMITIES, SAMANIEGO CATHETER INTACT AND PATENT WITH DARK YELLOW URINE OUTPUT, NO SEDIMENTS NOTED. PT WITH CONSULT WITH DR METZ DUE TO DECREASED URINE OUTPUT. ON CONTACT PRECAUTIONS FOR ESBL URINE. COLOSTOMY ON LLQ. GT IN PLACE. ALL SAFETY MEASURES IN PLACE.
--- NOTE | 2021-09-09 07:22 | NUR ---
ENDORSED PT TO DAY SHIFT RN FOR CONTINUITY OF CARE. PT IS STABLE.
--- NOTE | 2021-09-09 08:01 | NUR ---
OBTAINED ORDER FOR CBC/BMP FOR UPDATE FROM DR GILMAN, LAST BLOOD DRAW WAS 09/08/21, ORDER PLACED AND ACKNOWLEDGED.
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
[2021-09-09] MEDS ORDERED: DEXT 5% /NACL 0.9% 1,000 ML IV SCH (08:25)
[2021-09-09] MEDS: DOCUSATE 100 MG/10 ML UDC GT SCH (08:44)
[2021-09-09] MEDS: MULTIVITAMIN 1 TAB GT SCH (08:45)
[2021-09-09] MEDS: PANTOPRAZOLE 40 MG INJ VIAL IVP SCH (08:45)
[2021-09-09] MEDS: FOAM DRESSING TP SCH (09:00)
[2021-09-09] MEDS: DIGOXIN 0.125 MG/2.5 ML UDC GT SCH (09:00)
[2021-09-09] MEDS: METOPROLOL 50 MG TAB GT SCH (09:00)
[2021-09-09] MEDS: bisacodyL 10 MG SUPP RC SCH (09:00)
[2021-09-09] MEDS ORDERED: IV Meropenem IV (09:54)
[2021-09-09 10:11] LABS: ANION GAP 12.4 (8-16); CARBON DIOXIDE 25.1 mmol/L (21-32); CREATININE 0.7 mg/dL (0.6-1.3); POTASSIUM 3.5 mmol/L (3.5-5.1)
--- NOTE | 2021-09-09 10:40 | NUR ---
NOTED IV LINE INFILTRATED ON BOTH THUMBS, TRIED TO RE-INSERT BUT UNSUCCESSFUL. DR GILMAN MADE AWARE TO PLACE PICC/MIDLINE
[2021-09-09 10:45] LABS: MONOCYTES # (AUTO) 0.8 K/uL (0.8-1.0)
[2021-09-09 10:49] LABS: BASOPHILS # (AUTO) 0.1 K/uL (0.00-0.22); BASOPHILS % (AUTO) 0.9 % (0.0-2.0); EOSINOPHILS # (AUTO) 0.6 K/uL (0-0.4); MEAN CORPUSCULAR HGB CONC 33 g/dL (33-37); NEUTROPHILS % (AUTO) 69.2 % (42.2-75.2)
[2021-09-09 10:51] LABS: EOSINOPHILS % (AUTO) 7.2 % (0.0-4.0); LYMPHOCYTES % (AUTO) 12.6 % (20.5-51.1); MEAN CORPUSCULAR HEMOGLOBIN 27 pg (27-31); MEAN CORPUSCULAR VOLUME 80.5 fL (80-94); MONOCYTES % (AUTO) 10.1 % (1.7-9.3); NEUTROPHILS # (AUTO) 5.5 K/uL (1.8-7.7); RED CELL DISTRIBUTION WIDTH 18.4 % (11.6-13.7)
[2021-09-09] MEDS: NACL 0.9% IV SCH (10:54)
[2021-09-09] MEDS: PHENYTOIN IV SCH (10:54)
[2021-09-09 10:59] LABS: HEMATOCRIT 33.5 % (36-52); RED BLOOD CELL COUNT(AUTO) 4.11 MIL/uL (4.20-6.10)
[2021-09-09 11:00] LABS: PLATELET COUNT (AUTO) 294 K/uL (140-450)
--- NOTE | 2021-09-09 11:52 | NUR ---
STABLE GOOD CHEST RISE DEEP TRACHEAL SUCTION FOR MODERATE THIN YELLOW SECRETIONS AIRWAY PATENT
--- NOTE | 2021-09-09 11:55 | NUR ---
IV LINE INSERTED ON TRACY 20G VIA ULTRASOUND GUIDED INSERTION, NO S/SX OF INFILTRATION NOTED.
--- NOTE | 2021-09-09 12:00 | NUR ---
URINE SPECIMEN COLLECTED AND SENT TO LAB
[2021-09-09] MEDS ORDERED: MIDODRINE 5 MG TAB ONE (12:20)
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
[2021-09-09] MEDS: GAUZE TP SCH (13:00)
[2021-09-09 14:18] VITALS: BP 113/51
--- NOTE | 2021-09-09 14:40 | NUR ---
TRYING TO CALL [facility] BUT CALL KEEPS GETTING CUT OFF ON THEIR END.
--- NOTE | 2021-09-09 14:42 | NUR ---
CALLED AGAIN AND SPOKE WITH FISHING ROD MARKER, PROVIDED OUR NUMBER SO NURSE THERE CAN CALL US BACK.
--- NOTE | 2021-09-09 14:50 | NUR ---
[facility], SPOKE WITH BS WEI AND GAVE REPORT
--- NOTE | 2021-09-09 15:30 | NUR ---
PT PICKED UP BY [facility], DISCHARGED TO [facility]. ON TRACH TO VENT, WITH SAMANIEGO CATHETER, COLOSTOMY AND PERIPHERAL IV LINE ON TRACY. PT TO CONTINUE IV ANTIBIOTIC X 5MORE DAYS AT [facility].
== END 2021-09-09 15:44 | DRG 720 ==
LOC: MED 14:38 → MTU 16:58
PROC: 5A1955Z Respiratory Ventilation, Greater than 96 Consecutive Hours (ICD-10-PCS; principal; 2021-09-01)
DX: A41.9 Sepsis, unspecified organism (principal); J96.20 Acute and chronic respiratory failure, unspecified whether with hypoxia or hypercapnia; E43 Unspecified severe protein-calorie malnutrition; Z99.11 Dependence on respirator [ventilator] status; K94.23 Gastrostomy malfunction; N39.0 Urinary tract infection, site not specified; I50.9 Heart failure, unspecified; I11.0 Hypertensive heart disease with heart failure; E86.0 Dehydration; I48.91 Unspecified atrial fibrillation; K21.9 Gastro-esophageal reflux disease without esophagitis; G40.909 Epilepsy, unspecified, not intractable, without status epilepticus; Z20.822 Contact with and (suspected) exposure to COVID-19; R13.10 Dysphagia, unspecified; L03.90 Cellulitis, unspecified; Z88.0 Allergy status to penicillin; Z88.8 Allergy status to other drugs, medicaments and biological substances; Z86.73 Personal history of transient ischemic attack (TIA), and cerebral infarction without residual deficits; Z90.49 Acquired absence of other specified parts of digestive tract; Z68.25 Body mass index [BMI] 25.0-25.9, adult
CPT/HCPCS: 36415; 71045; 74018; 80048; 80053; 80162; 80185; 80305; 81001; 82150; 83036; 83605; 83690; 83735; 83880; 84100; 84134; 84300; 84436; 84443; 84484; 85025; 85610; 85730; 87040; 87081; 87086; 93005; 94003; 94640; 96365; 99285; C9113; J0696; J1165; J1644; J1956; J2185; J2765; J3475; J3480; J3490; J7030; J7060; J8597; Q0092; Q9967